=== PATIENT | male | born 1990 | race Asian ===

== ENCOUNTER 2024-01-09 01:10 | Emergency (ER) | payer OTHER, SELFPAY ==
--- NOTE | 2024-01-09 | XR_ITS ---
Patient: LESLEY SUMMERS Facility:?[facility] Patient ID:?[id number] Site Patient ID:?[id number] Site :?1990 Study:?XRay-Extremity Left ANKLE 3V-01/09/2024 2:25:33 AM Ordering Physician:SID Final Report: INDICATION: Injury and pain. TECHNIQUE: Left ankle 3 views. COMPARISON: None. FINDINGS: Ill-defined calcific density adjacent to calcaneocuboid joint, likely representing avulsion fracture. Ankle mortise is congruent. Joint spaces are maintained. Soft tissue swelling. IMPRESSION: Ill-defined calcific density adjacent to calcaneocuboid joint, likely representing avulsion fracture. Dictated by Leonardo Cuenca MD @ 01/09/2024 2:42:55 AM Signed by:?Leonardo Cuenca MD @01/09/2024 2:42:55 AM (Electronic Signature
[2024-01-09 01:26] VITALS: BP 123/78; PULSE 72; RESP 16; TEMP 36.3; O2SAT 98; BMI 28.6
--- NOTE | 2024-01-09 01:30 | XR_ITS ---
Patient: LESLEY SUMMERS Facility:?[facility] Patient ID:?[id number] Site Patient ID:?[id number] Site :?1990 Study:?XRay-Extremity Left Foot 3V-01/09/2024 1:50:56 AM Ordering Physician:DESTINY Final Report: Indication: Foot pain, fell. Technique: Left foot 3 views. Comparison: None. Findings: Bones: Tiny calcification adjacent to the calcaneal-cuboid articulation on the AP view. No other evidence for an acute fracture. Alignment is normal. No aggressive osseous lesion Joint spaces: Unremarkable. Soft tissues: Unremarkable. Impression: Tiny calcification adjacent to the calcaneocuboid articulation on the AP view may represent sequela of an age-indeterminate chip or avulsion fracture. Recommend correlation with site of focal tenderness. Dictated by Alexandr Yoon MD @ 01/09/2024 1:56:45 AM Signed by:?Alexandr Yoon MD @01/09/2024 1:56:45 AM (Electronic Signature)
--- NOTE | 2024-01-09 02:34 | ED.GENADULT ---
HPI - General Adult General Chief complaint: Extremity Pain/Injury, Lower Stated complaint: left foot injury from fall Time Seen by Provider: 01/09/24 01:49 Source: patient Mode of arrival: ambulatory Limitations: no limitations History of Present Illness HPI narrative: 33-year-old male presents the emergency department about a 1/2 hour after a fall down the stairs. Did not hit his head. Inversion injury he believes to the left foot, now has pain at the midfoot area as well as swelling. Difficult to bear weight. No prior history of fracture surgery. Not immunocompromised. Did not try taking any medication to help with symptoms. His did wrap and bandage it. He actually had his PT test just this morning and passed. 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 No numbness or tingling, no neuro change. Opposite side unaffected, no other parts of the body affected. States that his past medical history is benign, no major long-term health problems. No prescription medications or allergies. No intoxication tonight. ROS is notable for no other generalized, musculoskeletal, skin or neurological changes Related Data Home Medications Medication Instructions Recorded Confirmed No Known Home Medications 01/09/24 01/09/24 Allergies Allergy/AdvReac Type Severity Reaction Status Date / Time No Known Drug Allergies Allergy Verified 01/09/24 01:30 Exam Const: Vital Signs, click to edit/add: Vital Signs - 24 hr 01/09/24 01:26 Temperature 97.3 F L Pulse Rate [Pulse Oximeter] 72 Respiratory Rate 16 Blood Pressure [Ri ght Upper Arm] 123/78 Pulse Oximetry 98 Oxygen Delivery Me thod Room Air Documenting provider has reviewed patient's vital signs: yes Common normals: no apparent distress and alert General appearance: cooperative and well kempt HENMT: Common normals: normocephalic Head and scalp: normocephalic Face and sinus: normal facial exam Eye: Common normals: conjunctivae normal General eye: normal appearance of both eyes Conjunctiva: conjunctiva(e) normal Resp: Common normals: normal respiratory effort Effort & inspection: able to speak in complete sentences Extremity: Other: Both ankles with normal range of motion, no swelling. No point bony tenderness. Left midfoot with significant swelling along proximal metatarsal area. More so laterally than medially. No broken skin, mild bruising. The fusion present. Toes normal. Right foot normal. No bony tenderness, normal range of motion. Both feet have normal flexion, extension, inversion and eversion. Both plantar surfaces normal. DP pulses 2+ bilaterally with normal sensation. Neuro: Sensorium/orientation: alert Motor exam: no movement abnormalities noted Psych: Appearance: well kempt Attitude: engaged Mood and affect: euthymic mood Insight: insight good Judgement: judgment good Skin: Common normals: no rashes or lesions noted General skin exam: no rashes or lesions noted Course Course ED Course: Inversion foot injury with effusion, suspect fracture. X-rays recommended. Toradol 10 mg for pain. Update: Tiny chip next to calcaneal cuboid area, likely a tiny avulsion fracture. Confirmed with radiology report. Patient counseled on management. Postop shoe, crutches given. Tylenol and ibuprofen discussed for pain control. No weight-bearing for the next couple of weeks. May then try to wean out of crutches and postop shoe. If symptoms fully improved, may resume typical activity. If he has pain with light activity, ortho follow-up prior to any strenuous activity recommended. Does likely have a small ligament tear, hence the reason for the avulsion fracture but there is no significant instability in the foot noted. This should reattached with appropriate rest, counseled on this. He verbalizes understanding and agreement. Alarm symptoms reviewed that would warrant ED follow-up. He verbalizes understanding and agreement Vital Signs Vital signs: Initial Vital Signs Temperature 97.3 F L 01/09/24 01:26 Temperature Source Temporal Artery Scan 01/09/24 01:26 Pulse Rate 72 01/09/24 01:26 Pulse Rhythm Regular 01/09/24 01:26 Respiratory Rate 16 01/09/24 01:26 Blood Pressure 123/78 01/09/24 01:26 Blood Pressure Mean 93 01/09/24 01:26 Blood Pressure Position Sitting 01/09/24 01:26 Pulse Oximetry 98 01/09/24 01:26 Oxygen Delivery Method Room Air 01/09/24 01:26 Vital Signs Temperature 97.3 F L 01/09/24 01:26 Pulse Rate 72 01/09/24 01:26 Respiratory Rate 16 01/09/24 01:26 Blood Pressure 123/78 01/09/24 01:26 Pulse Oximetry 98 01/09/24 01:26 Oxygen Delivery Method Room Air 01/09/24 01:26 Temperature 97.3 F L 01/09/24 01:26 Pulse Rate 72 01/09/24 01:26 Respiratory Rate 16 01/09/24 01:26 Blood Pressure 123/78 01/09/24 01:26 Pulse Oximetry 98 01/09/24 01:26 Oxygen Delivery Method Room Air 01/09/24 01:26 Medications Administered Medications: Discontinued Medications Generic Name Dose Route Start Last Admin Trade Name Reynaldo PRN Reason Stop Dose Admin Ketorolac Tromethamine 10 mg 01/09/24 02:40 01/09/24 02:51 Ketorolac 10 Mg Tablet PO 01/09/24 02:41 10 mg ONCE ONE Administration Medical Decision Making Imaging Data Left foot x-ray: Attestation: I have reviewed the pertinent imaging results. My impression: Tiny chip fracture, medial midfoot Radiologist's impression: Impression: Tiny calcification adjacent to the calcaneocuboid articulation on the AP view may represent sequela of an age-indeterminate chip or avulsion fracture. Recommend correlation with site of focal tenderness. Ankle x-ray: Attestation: I have reviewed the pertinent imaging results. My impression: Chip fracture again seen, further described in foot x-ray Radiologist's impression: IMPRESSION: Ill-defined calcific density adjacent to calcaneocuboid joint, likely representing avulsion fracture. Discharge Plan Discharge Clinical Impression: Foot fracture, left Patient Disposition: Home w/ Parent or Adult Condition: Stable Instructions: Foot Fracture in Adults (ED) Additional Instructions: As we discussed, there is a tiny chip fracture of the bones on the inside of your midfoot. There is likely a small ligament tear associated with this as chip fractures are typically from the ligament or tendon pulling that tiny piece of bone off of the main section. Since it is such as small area, the ligament will likely reattached on its own within the next couple of weeks with appropriate rest. You have been placed in a postop shoe. Once the swelling goes down, you may wean back into a normal shoe in about 5 days if tolerated. If this is still too uncomfortable, continue using the postop shoe. Crutches for the next 10 days, no significant weight-bearing or physical activity for the next 2 weeks. At the 10 day rachel, you may try some gentle weight-bearing, light duty around the house. If this is still very bothersome, I want to make a follow-up appointment with her primary care doctor or an orthopedics nurse to further re-evaluate the foot. A fracture this minor should completely heal within about 4 weeks. I do not think that this will affect your upcoming training. I think he will have a good idea at the 2 week rachel if there will be persistent problems and can let your seen your office are no at that time. I do expect things to be fully healed in for you to be able to perform as expected but you will not be able to do heavy training to prepare in the next 2-3 weeks. For pain, I recommend Tylenol 1000 mg every 6 hours and ibuprofen 600 mg every 6 hours. It is okay to apply the topical homeopathic products if you choose, they will not interfere with healing in any way. If you have severe pain, worsening or other worrisome findings, come back to the emergency department. Activity Level: No Weight Bearing Discharge Diet: Regular Prescriptions: No Action No Known Home Medications Stand Alone Forms: [employer] Info Instructions
[2024-01-09] MEDS: KETOROLAC 10 MG TABLET PO (02:51)
--- OUTSIDE RECORDS SUMMARY | 2024-01-09 03:02 | XMS_ITS | Continuity of Care Document ---
Author Name [facility] Organization [facility] Care Team Providers Care Nurse Esthetician Name Role Phone [facility] Unavailable Unavailable Problems Combined list of problems from Department of Defense and Veterans [facility] facilities. It does not include entries that were removed or entered in error. Problem Status Onset Date Problem Type Date of Resolution Comme nts Source Pain in right hip Active 02/02/2018 Condition D oD Cellulitis of left finger Active 12/21/2017 Condition DoD Medications Combined list of outpatient medications from Department of Defense and Veterans Affairs facilities.Medications provided include 1) outpatient medications from the last 15 months, and 2) patient-reported medications. Medication Details Route Status Patient Instructions Prescription Expires Prescription Number Last Dispense Date Ordering Provider Order Date Order Qty Source BENZONATATE (benzonatat e), 100 MG, CAPSULE, ORAL, EpiEP PHARMA, 500 ea. BOTTLE Active [id number] 4 2023 30 Pharmac y Data Transac tion Service Facilit y IPRATROPIUM BROMIDE (IPRATROPIU M BROMIDE), 42MCG, SPRAY, NASAL, [facility] 15 ml CANISTER Active [id number] 09/13/19 2 4 2023 15 Pharmac y Data Transac tion Service Facilit y Allergies, Adverse Reactions, Alerts Combined list of allergies from Department of Defense and Veterans Affairs facilities. It does not include entries that were removed or entered in error. Substance Category Reaction Severity Reaction type Status Date Reported Comments Source No Known Allergies Drug allergy (disorder) active 01/13/2008 [place] Bryan sexton, ROXANA Immunizations Combined list of available immunizations from the Department of Defense and Veterans Affairs facilities. Immunization Series Date Given Administered By Site Reaction Lot Number CVX Code Drug Registered Physical Therapist Status Comments Source influenza, injectable, quadrivalent, preservative free 2020 GONZALES, () Not Given influenza , injectabl e, quadrival ent, preservat tash free [facility] influenza, injectable, quadrivalent, contains preservative 1 2017 SCOTTIE XIONG [id number] 158 Seqirus (SEQ) complet ed influenza , injectabl e, quadrival ent, contains preservat tash DoD measles, mumps and rubella virus vaccine 1 2017 UNK 03 Unknown (UNK) Not Given measles, mumps and rubella virus vaccine DoD varicella virus vaccine 1 2017 UNK 21 Unknown (UNK) Not Given varicella virus vaccine DoD hepatitis B vaccine, adult dosage 1 2017 UNK 43 Unknown (UNK) Not Given hepatitis B vaccine, adult dosage DoD hepatitis A vaccine, adult dosage 1 2017 UNK 52 Unknown (UNK) Not Given hepatitis A vaccine, adult dosage DoD poliovirus vaccine, inactivated 1 2017 DANIELLE PORRAS [id number] 10 Sanofi Pasteur (PMC) complet ed polioviru s vaccine, inactivat ed DoD tetanus toxoid, reduced diphtheria toxoid, and acellular pertu is vaccine, adsorbed 1 2017 DANIELLE PORRAS [id number] 115 [employer] (SKB) complet ed tetanus toxoid, reduced diphtheri a toxoid, and acellular pertussis vaccine, adsorbed DoD meningococcal oligosacchari de (groups A, C, Y and W-135) diphtheria toxoid conjugate vaccine (MCV4O) 1 2017 DANIELLE PORRAS [id number] 136 [employer] (SKB) complet ed meningoco ccal oligosacc haride (groups A, C, Y and W-135) diphtheri a toxoid conjugate vaccine (MCV4O) DoD Adenovirus, type 4 and type 7, live, oral 1 2017 DANIELLE PORRAS [id number] 143 [facility] (BRR) complet ed Adenoviru s, type 4 and type 7, live, oral DoD Influenza, injectable, quadrivalent, preservative free 1 2017 DANIELLE PORRAS [id number] 150 [employer] (SKB) complet ed Influenza , injectabl e, quadrival ent, preservat tash free DoD Encounters Combined list of: 1) Encounters from Department of Veterans Affairs facilities going back up to thelast 18 months. 2) Encounters from the Department of Defense facilities going back up to 280 months. Location Location Details Encounter Type Encounter Number Reason For Visit Attending Provider ADM Date DC Date Status Disposition Source [facility] [place] OUTPATIENT [id number] hearing ELIAZAR NICK 12/15 Released w/o Limitations [facility] [place] [facility] [place] [id number] Notes Entered by: Talib HODGSON 15 Dec 2017 1322 ------- ------- ------- ------- -- BLOOD JOEL-CO HOMERO CORMIER 12/15 Released w/o Limitations [facility] [place] [facility] [place] OUTPATIENT [id number] Notes Entered by: RAJI CAT 15 Dec 2017 1525 ------- ------- ------- ------- -- OST RADHAT JUAN CANTU 12/15 Released w/o Limitations [facility] [place] [facility] [place] [id number] Notes Entered by: Talib HODGSON 17 Dec 2017 1300 ------- ------- ------- ------- -- DANIELLE DE SANTIAGO 12/17 Released w/o Limitations [facility] [place] [facility] [place] S[facility] OUTPATIENT [id number] Notes Entered by: VEE CARRILLO 21 Dec 2017 1328 ------- ------- ------- ------- -- A 95 PHYSICIST SOLID STATE- INGROWN THUMB NAIL MELISSA RESENDEZ 12/21 Released w/o Limitations [facility] [place] [facility] [place] OUTPATIENT [id number] Notes Entered by: VEE CARRILLO 11 Jan 2018 0640 ------- ------- ------- ------- -- A 1-79 #FLU LIKE SX, COUGH, SORE THROAT, RUNNY NOSE, BODY ACHES, CONGEST ION SLY MYLES 01/11 Released w/o Limitations [facility] [place] [facility] [place] OUTPATIENT [id number] Notes Entered by: ADAM OCAMPO 15 Jan 2018 1243 ------- ------- ------- ------- -- A 1-79 right hamstri EREN Anderson 01/15 Released with Work/Duty Limitations [facility] [place] [facility] [place] OUT[place] [id number] Notes Entered by: ADAM OCAMPO 18 Jan 2018 1305 ------- ------- ------- ------- -- A 1-79 right thigh referra l EREN GHOSH 01/18 Released with Work/Duty Limitations [facility] [place] [facility] [place] [id number] Notes Entered by: SOM TOMAS 19 Jan 2018 0712 ------- ------- ------- ------- -- A1-79 Right SHREYA Garcia 01/19 Released with Work/Duty Limitations [facility] [place] [facility] [place] OUT[place] [id number] Notes Entered by: SOM TOMAS 22 Jan 2018 0648 ------- ------- ------- ------- -- A1-79 Right Hip F/U SHREYA BOURNE 01/22 Released with Work/Duty Limitations [facility] [place] [facility] [place] [id number] Notes Entered by: ZENON SULLIVAN CH P 02 Feb 2018 0628 ------- ------- ------- ------- -- R Hip F/U YE ADDISON 02/02 Released with Work/Duty Limitations [facility] [place] [facility] [place] [id number] Notes Entered by: ZENON SULLIVAN CH P 05 Feb 2018 0625 ------- ------- ------- ------- -- R Hip F/U ROMEO NOBLE 02/05 Released with Work/Duty Limitations [facility] [place] [facility] [place] [id number] Notes Entered by: ZENON SULLIVAN CH P 08 Feb 2018 0659 ------- ------- ------- ------- -- R Hip Therex KEENAN BEAUCHAMP 02/08 Released w/o Limitations [facility] [place] [facility] [place] [id number] Notes Entered by: SOM TOMAS 09 Feb 2018 0642 ------- ------- ------- ------- -- Right Pelvis TX KEENAN BEAUCHAMP 02/09 Released w/o Limitations [facility] [place] [facility] [place] [id number] Notes Entered by: KEENAN BEAUCHAMP 11 Feb 2018 0659 ------- ------- ------- ------- -- A1-79 R IPR TX KEENAN BEAUCHAMP Shruti 02/11 Released w/o Limitations [facility] [employer] [place] [facility] [place] OUT[place] [id number] Notes Entered by: SOM TOMAS 12 Feb 2018 0651 ------- ------- ------- ------- -- A1-79 Righ Pelvis F/U ROMEO NOBLE 02/12 Released with Work/Duty Limitations [facility] [place] VLAD Stone([place] [facility]) OUTPATIENT [id number] vomitin g,stoma ch pain RADHA GURROLA 04/26 Released with Work/Duty Limitations [facility] Dyson([place] [facility]) [facility] Stone([place] [facility]) OUTPATIENT [id number] NICHOLAS Fischer 04/30 Released w/o Limitations [facility] Dyson([place] [facility]) [facility]AD Stone([facility]) OUTPATIENT [id number] NICHOLAS TEIXEIRA 06/18 Released w/o Limitations [facility] Dyson([place] [facility]) Procedures Combined list of: 1) Procedures from Department of Veterans Affairs facilities going back up to thelast 18 months, not all VA non-surgical procedures are included; 2) All procedures from the Department of Defense facilities. Procedure Procedure Type Code Date Perfomer Comments Sour e ADMINISTRATION OF PATIENT-FOCUSED HEALTH RISK ASSESSMENT INSTRUMENT (EG, HEALTH HAZARD APPRAISAL) WITH SCORING AND DOCUMENTATION, PER STANDARDIZED INSTRUMENT 04/30/20 [facility] HEPATITIS B VACCINE (HEPB), ADULT DOSAGE, 3 DOSE SCHEDULE, FOR INTRAMUSCULAR USE 09/06/20 DoD SKIN TEST; TUBERCULOSIS, INTRADERMAL 03/19/20 DoD RE-EVAL,PHYSICAL THERAPY EST PLAN OF CARE,REQ:EXAM,REV, HX & USE,STAND TESTS &JAY REQ;REV PLAN OF CARE USING STAND PAT ASSESS INSTR &/JAY ASSESS FUNC OUTCOME TYP,20 MIN SPENT [id number] W PAT&/FAM 02/13/20 18 [facility] APPLICATION OF A MODALITY TO 1 OR MORE AREAS; HOT OR COLD PACKS 02/12/20 18 [facility] APPLICATION OF A MODALITY TO 1 OR MORE AREAS; HOT OR COLD PACKS 02/10/20 18 [facility] APPLICATION OF A MODALITY TO 1 OR MORE AREAS; HOT OR COLD PACKS 02/09/20 18 [facility] RE-EVAL,PHYSICAL THERAPY EST PLAN OF CARE,REQ:EXAM,REV, HX & USE,STAND TESTS &JAY REQ;REV PLAN OF CARE USING STAND PAT ASSESS INSTR &/JAY ASSESS FUNC OUTCOME TYP,20 MIN SPENT [id number] W PAT&/FAM 02/06/20 18 [facility] THERAPEUTIC PROCEDURE(S), GROUP (2 OR MORE INDIVIDUALS) 02/03/20 18 [facility] THERAPEUTIC PROCEDURE, 1 OR MORE AREAS, EACH 15 MINUTES; THERAPEUTIC EXERCISES TO DEVELOP STRENGTH AND ENDURANCE, RANGE OF MOTION AND FLEXIBILITY 01/23/20 18 [facility] THERAPEUTIC PROCEDURE, 1 OR MORE AREAS, EACH 15 MINUTES; THERAPEUTIC EXERCISES TO DEVELOP STRENGTH AND ENDURANCE, RANGE OF MOTION AND FLEXIBILITY 01/20/20 18 [facility] THERAPEUTIC PROCEDURE, 1 OR MORE AREAS, EACH 15 MINUTES; THERAPEUTIC EXERCISES TO DEVELOP STRENGTH AND ENDURANCE, RANGE OF MOTION AND FLEXIBILITY 01/19/20 18 [facility] THERAPEUTIC PROCEDURE, 1 OR MORE AREAS, EACH 15 MINUTES; THERAPEUTIC EXERCISES TO DEVELOP STRENGTH AND ENDURANCE, RANGE OF MOTION AND FLEXIBILITY 01/16/20 18 [facility] ADENOVIRUS VACCINE, TYPE 7, LIVE, FOR ORAL USE 12/18/19 18 [facility] SCREENING TEST OF VISUAL ACUITY, QUANTITATIVE, BILATERAL 12/16/19 18 [facility] HANDLING AND/OR CONVEYANCE OF SPECIMEN FOR TRANSFER FROM THE OFFICE TO A LABORATORY 12/16/19 18 [facility] PATIENT EDUCATION, NOT OTHERWISE CLASSIFIED, NON-PHYSICIAN PROVIDER, GROUP, PER SESSION 12/16/19 18 [facility] Preventive Med Standardized Depre ion Screening: Negative For Symptoms Preventive Med Standardized Depression Screening: Negative For Symptoms 3351F 06/18/20 18 NICHOLAS RAMOS [facility] Preventive Med Standardized Depre ion Screening: Negative For Symptoms Preventive Med Standardized Depression Screening: Negative For Symptoms 3351F 04/30/20 18 NICHOLAS RAMOS [facility] Physical Therapy Service Re-Evaluation Physical Therapy Service Re-Evaluation 58042 02/13/20 18 ROMEO NOBLE [facility] Modalities Cryotherapy Cold Packs Modalities Cryotherapy Cold Packs 87365 02/12/20 18 NITO, KEENAN L [facility] Physical Medicine - Group Physical Therapy Se ion Physical Medicine - Group Physical Therapy Session [id number] 02/12/20 18 NITO, KEENAN L [facility] Physical Therapy: ___ Se ion Segments, 15 Minutes Each Physical Therapy: ___ Session Segments, 15 Minutes Each [id number] 02/12/20 18 NITO, KEENAN L [facility] Modalities Cryotherapy Cold Packs Modalities Cryotherapy Cold Packs 76379 02/10/20 18 NITO, KEENAN L [facility] Physical Medicine - Group Physical Therapy Se ion Physical Medicine - Group Physical Therapy Session [id number] 02/10/20 18 NITO, KEENAN L [facility] Physical Therapy: ___ Se ion Segments, 15 Minutes Each Physical Therapy: ___ Session Segments, 15 Minutes Each [id number] 02/10/20 18 NITO, KEENAN L [facility] Modalities Cryotherapy Cold Packs Modalities Cryotherapy Cold Packs 95058 02/09/20 18 NITO, KEENAN L [facility] Physical Therapy: ___ Se ion Segments, 15 Minutes Each Physical Therapy: ___ Session Segments, 15 Minutes Each [id number] 02/09/20 18 NITO, KEENAN L [facility] Physical Medicine - Group Physical Therapy Se ion Physical Medicine - Group Physical Therapy Session [id number] 02/09/20 18 NITO, KEENAN L [facility] Physical Therapy Service Re-Evaluation Physical Therapy Service Re-Evaluation [id number] 02/06/20 18 ROMEO NOBLE [facility] Physical Medicine - Group Physical Therapy Se ion Physical Medicine - Group Physical Therapy Session [id number] 02/03/20 18 YE ADDISON [facility] Physical Therapy: ___ Se ion Segments, 15 Minutes Each Physical Therapy: ___ Session Segments, 15 Minutes Each [id number] 02/03/20 18 YE ADDISON [facility] Physical Therapy Service Re-Evaluation Physical Therapy Service Re-Evaluation 47101 02/03/20 18 YE ADDISON [facility] A isted Exercises For ROM Assisted Exercises For ROM [id number] 01/23/20 18 SHREYA BOURNE [facility] Physical Therapy Service Re-Evaluation Physical Therapy Service Re-Evaluation 88441 01/23/20 18 SHREYA BOURNE [facility] Physical Therapy: ___ Se ion Segments, 15 Minutes Each Physical Therapy: ___ Session Segments, 15 Minutes Each [id number] 01/22/20 18 EREN GHOSH [facility] Athletic Training Re-evaluation Athletic Training Re-evaluation 17494 01/22/20 18 EREN GHOSH [facility] A isted Exercises For ROM Assisted [place] 47945 01/20/20 18 STEFFEN SHREYA L [facility] Physical Therapy Service Evaluation Moderate Complexity Physical Therapy Service Evaluation Moderate Complexity 97577 01/20/20 18 SHREYA BOURNE [facility] Physical Therapy: ___ Se ion Segments, 15 Minutes Each Physical Therapy: ___ Session Segments, 15 Minutes Each [id number] 01/20/20 18 EREN GHOSH Athletic Training Evaluation Low Complexity Athletic Training Evaluation Low Complexity 31387 01/20/20 18 EREN GHOSH [facility] Physician Supervised Injection Intramuscular Antibiotic Physician Supervised Injection Intramuscular Antibiotic 69888 12/18/19 18 [facility] Vaccines Adenovirus Type 7 Live, For Oral Use Vaccines Adenovirus Type 7 Live, For Oral Use 16531 12/18/19 18 [facility] Vaccines Adenovirus Type 4 Live, For Oral Use Vaccines Adenovirus Type 4 Live, For Oral Use 96174 12/18/19 18 [facility] Immunization Admin Intranasal / Oral Each Additional Vaccine Immunization Admin Intranasal / Oral Each Additional Vaccine 50364 12/18/19 18 [facility] Immunization Administration By Injection, Each Additional Vaccine Immunization Administration By Injection, Each Additional Vaccine 45183 12/18/19 18 [facility] Immunization Admin By Intranasal / Oral Route One Vaccine Immunization Admin By Intranasal / Oral Route One Vaccine 42585 12/18/19 18 [facility] Vaccines Viral Polio, Inactivated Vaccines Viral Polio, Inactivated 66167 12/18/19 18 [facility] IPV; Series #: 1; .5 mL; SC; Right Arm; Mfg: Sanofi Pasteur; Lot: [id number]; VIS given ([facility]: 03/26/16; 07/12/15 - Multiple). [facility] Tdap Vaccine Tdap Vaccine 08332 12/18/19 18 CHIQUITA DANIELLE Tdap; Series #: 1; .5 mL; IM; Left Arm; Mfg: [employer]; Lot: [id number]; VIS given ([facility]: 10/31/14). [facility] Meningococcal (A, C, Y, W-135) Oligosacch Diphtheria Toxoid Conj Vacc 12/18/19 18 DANIELLE PORRAS Meningococcal MCV4O; Series #: 1; .5 mL; IM; Right Arm; Mfg: [employer]; Lot: [id number]; VIS given ([facility]: 12/06/2015). [facility] Influenza Split Virus Vaccine IM Preserv Free 0.5mL Dosage Quadrivalent Influenza Split Virus Vaccine IM Preserv Free 0.5mL Dosage Quadrivalent 10780 12/18/19 18 DANIELLE PORRAS Influenza Seasonal, injectable quadrivalent - preservative free; Series #: 1; .5 mL; IM; Left Arm; Mfg: [employer]; Lot: [id number]; VIS given ([facility]: 04/13/2015). [facility] Screening Test Of Visual Acuity, Quantitative, Bilateral Screening Test Of Visual Acuity, Quantitative, Bilateral 45713 12/16/19 18 RAJI CAT [facility] Venipuncture Venipuncture 91375 12/16/19 18 HOMERO ONEIL [facility] Physician Supervised Specimen Handling / Transfer: Office To Lab Physician Supervised Specimen Handling / Transfer: Office To Lab [id number] 12/16/19 18 HOMERO ONEIL [facility] Patient education, not otherwise cla ified, non-physician provider, group, per se ion 12/16/19 18 ELIAZAR NICK Threshold Audiogram (Pure Tone) Automated Threshold Audiogram (Pure Tone) Automated [id number] 12/16/19 18 ELIAZAR NICK Ear mold/insert, not disposable, any type 12/16/19 18 ELIAZAR NICK Social History Combined list of available smoking, tobacco, and other social history from Department of Defense and Veterans Affairs facilities. Social History Type Response Date Comment Sour e This section is an empty social history section. [facility]
--- OUTSIDE RECORDS SUMMARY | 2024-01-09 03:02 | XMS_ITS | Continuity of Care Document ---
Author Name [facility] Organization [facility] Care Team Providers Care Industrial Equipment Wirer Name Role Phone [facility] Unavailable Unavailable Problems Combined list of problems from Department of Defense and [facility] facilities. It does not include entries that [...] BENZONATATE (benzonatat e), 100 MG, CAPSULE, ORAL, [employer] PHARMA, 500 ea. BOTTLE Active [id number] 4 2023 30 Pharmac y Data Transac tion Service Facilit y IPRATROPIUM BROMIDE (IPRATROPIU M BROMIDE), 42MCG, SPRAY, NASAL, [facility] 15 ml CANISTER Active [id number] 09/13/19 2 4 2023 15 Pharmac y Data Transac tion Service Facilit y Allergies, Adverse Reactions, Alerts Combined list of allergies from Department of Defense and Veterans Affairs facilities. It does not include entries that were removed or entered in error. Substance Category Reaction Severity Reaction type Status Date Reported Comments Source No Known Allergies Drug allergy (disorder) active 01/13/2008 MS Bryan sexton, ROXANA Immunizations Combined list of available immunizations from the Department of Defense and Veterans Affairs facilities. Immunization Series Date Given Administered By Site Reaction Lot Number CVX Code Drug Film Or Videotape Editor Status Comments Source influenza, injectable, quadrivalent, preservative free 2020 GONZALES, () Not Given influenza , injectabl e, quadrival ent, preservat tash free [facility] influenza, injectable, quadrivalent, contains preservative 1 2017 SCOTTIE XIONG [id number] 1A 158 Seqirus (SEQ) complet ed influenza [...] poliovirus vaccine, inactivated 1 2017 DANIELLE PORRAS [id number] 10 Sanofi Pasteur (PMC) complet ed polioviru s vaccine, inactivat ed DoD tetanus toxoid, reduced diphtheria toxoid, and acellular pertu is vaccine, adsorbed 1 2017 DANIELLE PORRAS [id number] 115 [employer] (SKB) complet ed tetanus toxoid, reduced diphtheri a toxoid, and acellular pertussis vaccine, adsorbed DoD meningococcal oligosacchari de (groups A, C, Y and W-135) diphtheria toxoid conjugate vaccine (MCV4O) 1 2017 DANIELLE PORRAS [id number] 136 [employer] (SKB) complet ed meningoco ccal oligosacc haride (groups A, C, Y and W-135) diphtheri a toxoid conjugate vaccine (MCV4O) DoD Adenovirus, type 4 and type 7, live, oral 1 2017 DANIELLE PORRAS [id number] 143 [facility] ([facility]) complet ed Adenoviru s, type 4 and type 7, live, oral DoD Influenza, injectable, quadrivalent, preservative free 1 2017 DANIELLE PORRAS [id number] 150 [employer] (SKB) complet ed Influenza , injectabl e, [...] [place] OUTPATIENT [id number] hearing ELIAZAR NICK 12/15 Released w/o Limitations [facility] [place] [facility] [place] [id number] Notes Entered by: Talib HODGSON 15 Dec 2017 1322 ------- ------- ------- ------- -- BLOOD JOEL-CO HOMERO CORMIER 12/15 Released w/o Limitations [facility] [place] [facility] [place] OUT[place] [id number] Notes Entered by: RAJI CAT 15 Dec 2017 1525 ------- ------- ------- ------- -- OST RADHAT JUAN CANTU 12/15 Released w/o Limitations [facility] [place] [facility] [place] [id number] Notes Entered by: Talib HODGSON 17 Dec 2017 1300 ------- ------- ------- ------- -- DANIELLE DE SANTIAGO 12/17 Released w/o Limitations [facility] [place] [facility] [place] S[facility] OUTPATIENT [id number] Notes Entered by: VEE CARRILLO 21 Dec 2017 1328 ------- ------- ------- ------- -- A 95 CHIROPRACTIC DOCTOR- INGROWN THUMB NAIL MELISSA RESENDEZ 12/21 Released w/o Limitations [facility] [place] [facility] [place] OUTPATIENT [id number] Notes Entered by: VEE CARRILLO 11 Jan 2018 0640 ------- ------- ------- ------- -- A 1-79 #FLU LIKE SX, COUGH, SORE THROAT, RUNNY NOSE, BODY ACHES, CONGEST ION SLY MYLES 01/11 Released w/o Limitations [facility] [place] [facility] [place] OUTPATIENT [id number] Notes Entered by: ADAM OCAMPO 15 Jan 2018 1243 ------- ------- ------- ------- -- A 1-79 right hamstri EREN Anderson 01/15 Released with Work/Duty Limitations [facility] [place] [facility] [place] [id number] Notes Entered by: ADAM OCAMPO 18 Jan 2018 1305 ------- ------- ------- ------- -- A 1-79 right thigh referra l EREN GHOSH 01/18 Released with Work/Duty Limitations [facility] [place] [facility] [place] OUT[place] [id number] Notes Entered by: SOM TOMAS 19 Jan 2018 0712 ------- ------- ------- ------- -- A1-79 Right SHREYA Garcia 01/19 Released with Work/Duty Limitations [facility] [place] [facility] [place] [id number] Notes Entered by: SOM TOMAS 22 Jan 2018 0648 ------- ------- ------- ------- -- A1-79 Right Hip F/U SHREYA BOURNE 01/22 Released with Work/Duty Limitations [facility] [place] [facility] [place] OUT[place] [id number] Notes Entered by: ZENON SULLIVAN CH P 02 Feb 2018 0628 ------- ------- ------- ------- -- R Hip F/U YE ADDISON 02/02 Released with Work/Duty Limitations [facility] [place] [facility] [place] [id number] Notes Entered by: ZENON SULLIVAN CH P 05 Feb 2018 0625 ------- ------- ------- ------- -- R Hip F/U ROMEO NOBLE 02/05 Released with Work/Duty Limitations [facility] [place] [facility] [place] [id number] Notes Entered by: ZENON SULLIVAN CH P 08 Feb 2018 0659 ------- ------- ------- ------- -- R Hip Therex KEENAN BEAUCHAMP 02/08 Released w/o Limitations [facility] [place] [facility] [place] [id number] Notes Entered by: SOM TOMAS 09 Feb 2018 0642 ------- ------- ------- ------- -- Right Pelvis TX KEENAN BEAUCHAMP 02/09 Released w/o Limitations [facility] [place] [facility] [place] [id number] Notes Entered by: KEENAN BEAUCHAMP 11 Feb 2018 0659 ------- ------- ------- ------- -- A1-79 R IPR TX KEENAN BEAUCHAMP Shruti 02/11 Released w/o Limitations [facility] [place] [facility] [place] [id number] Notes Entered by: SOM TOMAS 12 Feb 2018 0651 ------- ------- ------- ------- -- A1-79 Righ Pelvis F/U ROMEO NOBLE 02/12 Released with Work/Duty Limitations [facility] VLAD Stone(OR Student [facility]) OUTPATIENT [id number] vomitin g,stoma ch pain RADHA GURROLA 04/26 Released with Work/Duty Limitations VLAD Dyson(OR Student [facility]) [facility] Stone(OR Student [facility]) OUTPATIENT [id number] NICHOLAS Fischer 04/30 Released w/o Limitations [facility] Dyson(OR Student [facility]) [facility]) OUTPATIENT [id number] NICHOLAS TEIXEIRA 06/18 Released w/o Limitations [facility] Dyson(OR Student [facility]) Procedures Combined list of: 1) Procedures [...] SCORING AND DOCUMENTATION, PER STANDARDIZED INSTRUMENT 04/30/20 [facility] HEPATITIS B VACCINE (HEPB), ADULT DOSAGE, 3 DOSE SCHEDULE, FOR INTRAMUSCULAR USE 09/06/20 DoD SKIN TEST; TUBERCULOSIS, INTRADERMAL 03/19/20 DoD RE-EVAL,PHYSICAL THERAPY EST PLAN OF CARE,REQ:EXAM,REV, HX & USE,STAND TESTS &JAY REQ;REV PLAN OF CARE USING STAND PAT ASSESS INSTR &/JAY ASSESS FUNC OUTCOME TYP,20 MIN SPENT HJOZ-RN-XRMD W PAT&/FAM 02/13/20 18 [facility] APPLICATION OF A MODALITY TO 1 OR MORE AREAS; HOT OR COLD PACKS 02/12/20 18 [facility] APPLICATION OF A MODALITY TO 1 OR MORE AREAS; HOT OR COLD PACKS 02/10/20 18 [facility] APPLICATION OF A MODALITY TO 1 OR MORE AREAS; HOT OR COLD PACKS 02/09/20 18 [facility] RE-EVAL,PHYSICAL THERAPY EST PLAN OF CARE,REQ:EXAM,REV, HX & USE,STAND TESTS &JAY REQ;REV PLAN OF CARE USING STAND PAT ASSESS INSTR &/JAY ASSESS FUNC OUTCOME TYP,20 MIN SPENT RNIO-KG-HSAC W PAT&/FAM 02/06/20 18 [facility] THERAPEUTIC PROCEDURE(S), GROUP (2 OR MORE INDIVIDUALS) 02/03/20 18 [facility] THERAPEUTIC PROCEDURE, 1 OR MORE AREAS, EACH 15 MINUTES; THERAPEUTIC EXERCISES TO DEVELOP STRENGTH AND ENDURANCE, RANGE OF MOTION AND FLEXIBILITY 01/23/20 18 [facility] THERAPEUTIC PROCEDURE, 1 OR MORE AREAS, EACH 15 MINUTES; THERAPEUTIC EXERCISES TO DEVELOP STRENGTH AND ENDURANCE, RANGE OF MOTION AND FLEXIBILITY 01/20/20 18 [facility] THERAPEUTIC PROCEDURE, 1 OR MORE AREAS, EACH 15 MINUTES; THERAPEUTIC EXERCISES TO DEVELOP STRENGTH AND ENDURANCE, RANGE OF MOTION AND FLEXIBILITY 01/19/20 18 [facility] THERAPEUTIC PROCEDURE, 1 OR MORE AREAS, EACH 15 MINUTES; THERAPEUTIC EXERCISES TO DEVELOP STRENGTH AND ENDURANCE, RANGE OF MOTION AND FLEXIBILITY 01/16/20 18 [facility] ADENOVIRUS VACCINE, TYPE 7, LIVE, FOR ORAL USE 12/18/19 18 [facility] SCREENING TEST OF VISUAL ACUITY, QUANTITATIVE, BILATERAL 12/16/19 18 [facility] HANDLING AND/OR CONVEYANCE OF SPECIMEN FOR TRANSFER FROM THE OFFICE TO A LABORATORY 12/16/19 18 [facility] PATIENT EDUCATION, NOT OTHERWISE CLASSIFIED, NON-PHYSICIAN PROVIDER, GROUP, PER SESSION 12/16/19 18 [facility] Preventive Med Standardized Depre ion Screening: Negative For Symptoms Preventive Med Standardized Depression Screening: Negative For Symptoms 3351F 06/18/20 18 NICHOLAS RAMOS [facility] Preventive Med Standardized Depre ion Screening: Negative For Symptoms Preventive Med Standardized Depression Screening: Negative For Symptoms 3351F 04/30/20 18 NICHOLAS RAMOS [facility] Physical Therapy Service Re-Evaluation Physical Therapy Service Re-Evaluation [id number] 02/13/20 18 ROMEO NOBLE [facility] Modalities Cryotherapy Cold Packs Modalities Cryotherapy Cold Packs 45789 02/12/20 18 NITO, KEENAN L [facility] Physical Medicine - Group Physical Therapy Se ion Physical Medicine - Group Physical Therapy Session [id number] 02/12/20 18 NITO, KEENAN L [facility] Physical Therapy: ___ Se ion Segments, 15 Minutes Each Physical Therapy: ___ Session Segments, 15 Minutes Each [id number] 02/12/20 18 NITO, KEENAN L [facility] Modalities Cryotherapy Cold Packs Modalities Cryotherapy Cold Packs 78493 02/10/20 18 NITO, KEENAN L [facility] Physical Medicine - Group Physical Therapy Se ion Physical Medicine - Group Physical Therapy Session [id number] 02/10/20 18 NITO, KEENAN L [facility] Physical Therapy: ___ Se ion Segments, 15 Minutes Each Physical Therapy: ___ Session Segments, 15 Minutes Each [id number] 02/10/20 18 NITO, KEENAN L [facility] Modalities Cryotherapy Cold Packs Modalities Cryotherapy Cold Packs 02813 02/09/20 18 NITO, KEENAN L [facility] Physical Therapy: ___ Se ion Segments, 15 Minutes Each Physical Therapy: ___ Session Segments, 15 Minutes Each 39647 02/09/20 18 NITO, KEENAN L [facility] Physical Medicine - Group Physical Therapy Se ion Physical Medicine - Group Physical Therapy Session [id number] 02/09/20 18 NITO, KEENAN L [facility] Physical Therapy Service Re-Evaluation Physical Therapy Service Re-Evaluation 86182 02/06/20 18 ROMEO NOBLE [facility] Physical Medicine - Group Physical Therapy Se ion Physical Medicine - Group Physical Therapy Session 61355 02/03/20 18 YE ADDISON [facility] Physical Therapy: ___ Se ion Segments, 15 Minutes Each Physical Therapy: ___ Session Segments, 15 Minutes Each 13266 02/03/20 18 YE ADDISON [facility] Physical Therapy Service Re-Evaluation Physical Therapy Service Re-Evaluation 98961 02/03/20 18 YE ADDISON [facility] A isted Exercises For ROM Assisted Exercises For ROM 05410 01/23/20 18 SHREYA BOURNE [facility] Physical Therapy Service Re-Evaluation Physical Therapy Service Re-Evaluation 75750 01/23/20 18 SHREYA BOURNE [facility] Physical Therapy: ___ Se ion Segments, 15 Minutes Each Physical Therapy: ___ Session Segments, 15 Minutes Each 36717 01/22/20 18 EREN GHOSH [facility] Athletic Training Re-evaluation Athletic Training Re-evaluation 95734 01/22/20 18 EREN GHOSH [facility] A isted Exercises For ROM Assisted Exercises [place] ROM 89520 01/20/20 18 STEFFEN SHREYA L [facility] Physical Therapy Service Evaluation Moderate Complexity Physical Therapy Service Evaluation Moderate Complexity 58281 01/20/20 18 SHREYA BOURNE [facility] Physical Therapy: ___ Se ion Segments, 15 Minutes Each Physical Therapy: ___ Session Segments, 15 Minutes Each 31615 01/20/20 18 EREN GHOSH Athletic Training Evaluation Low Complexity Athletic Training Evaluation Low Complexity 58584 01/20/20 18 EREN GHOSH [facility] Physician Supervised Injection Intramuscular Antibiotic Physician Supervised Injection Intramuscular Antibiotic 12167 12/18/19 18 [facility] Vaccines Adenovirus Type 7 Live, For Oral Use Vaccines Adenovirus Type 7 Live, For Oral Use 01402 12/18/19 18 [facility] Vaccines Adenovirus Type 4 Live, For Oral Use Vaccines Adenovirus Type 4 Live, For Oral Use 28109 12/18/19 18 [facility] Immunization Admin Intranasal / Oral Each Additional Vaccine Immunization Admin Intranasal / Oral Each Additional Vaccine 64222 12/18/19 18 [facility] Immunization Administration By Injection, Each Additional Vaccine Immunization Administration By Injection, Each Additional Vaccine 97100 12/18/19 18 [facility] Immunization Admin By Intranasal / Oral Route One Vaccine Immunization Admin By Intranasal / Oral Route One Vaccine 91930 12/18/19 18 [facility] Vaccines Viral Polio, Inactivated Vaccines Viral Polio, Inactivated 18404 12/18/19 18 [facility] IPV; Series #: 1; .5 mL; SC; Right Arm; Mfg: Sanofi Pasteur; Lot: [id number]; VIS given ([facility]: 03/26/16; 07/12/15 - Multiple). [facility] Tdap Vaccine Tdap Vaccine 03609 12/18/19 18 CHIQUITA DANIELLE Tdap; Series #: 1; .5 mL; IM; Left Arm; Mfg: [employer]; Lot: [id number]; VIS given ([facility]: 10/31/14). [facility] Meningococcal (A, C, Y, W-135) Oligosacch Diphtheria Toxoid Conj Vacc 12/18/19 18 DANIELLE PORRAS Meningococcal MCV4O; Series #: 1; .5 mL; IM; Right Arm; Mfg: [employer]; Lot: [id number]; VIS given ([facility]: 12/06/2015). [facility] Influenza Split Virus Vaccine IM Preserv Free 0.5mL Dosage Quadrivalent Influenza Split Virus Vaccine IM Preserv Free 0.5mL Dosage Quadrivalent 70157 12/18/19 18 DANIELLE PORRAS Influenza Seasonal, injectable quadrivalent - preservative free; Series #: 1; .5 mL; IM; Left Arm; Mfg: [employer]; Lot: [id number]; VIS given ([facility]: 04/13/2015). [facility] Screening Test Of Visual Acuity, Quantitative, Bilateral Screening Test Of Visual Acuity, Quantitative, Bilateral 88071 12/16/19 18 RAJI CAT [facility] Venipuncture Venipuncture 83683 12/16/19 18 HOMERO ONEIL [facility] Physician Supervised Specimen Handling / Transfer: Office To Lab Physician Supervised Specimen Handling / Transfer: Office To Lab 44160 12/16/19 18 HOMERO ONEIL [facility] Patient education, not otherwise cla ified, non-physician [...] section is an empty social history section. [facility]
== END 2024-01-09 03:21 | disposition home or self-care (01) ==
LOC: ED 03:00
PROVIDERS: Emergency Provider Family Medicine
DX: S92.902A Unspecified fracture of left foot, initial encounter for closed fracture (principal)
CPT/HCPCS: 73610; 73630; 99283; 99284; A9270